=== PATIENT | male | born 1955 | race Caucasian/White ===

== ENCOUNTER 2016-10-15 07:26 | Day surgery (SDC) | payer OTHER ==
[2016-10-15] MEDS ORDERED: FENTANYL CITRATE 50 MCG/ML SOL ONE (07:51)
[2016-10-15] MEDS ORDERED: LIDOCAINE HCL 1% MPF SOL ONE (07:51)
[2016-10-15] MEDS ORDERED: PROPOFOL 10 MG/ML EMU IV ONE ×3 (07:51→12:14)
[2016-10-15] MEDS ORDERED: MIDAZOLAM 2 MG/2 ML SOL ONE (07:51)
[2016-10-15] MEDS ORDERED: CEFAZOLIN SODIUM 1 GM PDS ONE (12:00)
[2016-10-15] MEDS: LIDOCAINE HCL 1% MPF SOL ONE (12:02)
[2016-10-15] MEDS: BUPIVACAINE/EPI 0.5% 10 ML SOL INFIL ONE (12:02)
[2016-10-15] MEDS: HEPARIN SODIUM 100 U/ML SOL IV ONE (12:22)
[2016-10-15 12:56] VITALS: RESP 18
[2016-10-15 13:24] VITALS: BP 129/74; PULSE 79; TEMP 97.4; O2SAT 93
== END 2016-10-15 13:55 | disposition home or self-care (01) | DRG 842 ==
LOC: SURG 07:26
PROVIDERS: ATTEND Surgery
DX: C95.90 Leukemia, unspecified not having achieved remission (principal)
CPT/HCPCS: 71010; 76000; J0690; J1644; J2250; J3010

== ENCOUNTER 2017-06-28 15:08 | Emergency (ER) | payer OTHER ==
[2017-06-28 15:32] VITALS: BP 132/78; PULSE 68; RESP 20; TEMP 98.2; O2SAT 98
== END 2017-06-28 15:55 | disposition home or self-care (01) | DRG 151 ==
LOC: ED 15:08
DX: R04.0 Epistaxis (principal)
CPT/HCPCS: 30901; 99282

== ENCOUNTER 2017-06-28 16:22 | Emergency (ER) | payer OTHER ==
[2017-06-28 16:22] VITALS: O2SAT 98
[2017-06-28 16:42] VITALS: BP 151/75; PULSE 66; RESP 20; TEMP 96.5
== END 2017-06-28 17:15 | disposition home or self-care (01) | DRG 151 ==
LOC: ED 16:22
DX: R04.0 Epistaxis (principal)
CPT/HCPCS: 99282

== ENCOUNTER 2017-09-30 20:36 | Inpatient (IN) | payer OTHER ==
[2017-09-30] MEDS ORDERED: ALBUTEROL/IPRATROPIUM 1 VIAL SOL ONE ×3 (20:41→21:35)
[2017-09-30] MEDS ORDERED: SOLUMEDROL 125 MG/2 ML 125 MG/2 ML PDS ONE (20:41)
[2017-09-30] MEDS ORDERED: ALBUTEROL/IPRATROPIUM 1 VIAL SOL INH ONE ×3 (20:42→21:55)
[2017-09-30] MEDS ORDERED: SOLUMEDROL 125 MG/2 ML 125 MG/2 ML PDS IV ONE (20:43)
[2017-09-30 20:53] LABS: BASOPHILS % (AUTO) 1 % (0-3); EOSINOPHILS % (AUTO) 1 % (0-9); HEMATOCRIT 39 % (39-53); MEAN CORPUSCULAR HGB CONC 34.6 gm/dl (32.0-36.0); MEAN CORPUSCULAR VOLUME 93 fL (80-100); MONOCYTES % (AUTO) 15.4 % (0-12); NEUTROPHILS % (AUTO) 67.6 % (37-80)
[2017-09-30] MEDS ORDERED: HEPARIN 500 Unit PRE-FILL 100 U/ML SOL IV PRN (20:56)
[2017-09-30 21:06] LABS: ALBUMIN 3.9 gm/dl (3.4-5.0); CALCIUM 8.8 mg/dl (8.5-10.1); POTASSIUM 3.7 mMol/L (3.5-5.1)
[2017-09-30] MEDS: SODIUM CHLORIDE 0.9% FLUSH 10 ML SOL IV PRN ×2 (21:14→23:20)
[2017-09-30] MEDS: ALBUTEROL NEB SOL 2.5MG/3ML 1 VIAL SOL NEB SCH (23:16)
[2017-09-30] MEDS: SOLUMEDROL 125 MG/2 ML 125 MG/2 ML PDS IV SCH (23:16)
[2017-10-01] MEDS: ALBUTEROL NEB SOL 2.5MG/3ML 1 VIAL SOL NEB SCH ×2 (04:29→09:49)
[2017-10-01 04:33] VITALS: RESP 20
[2017-10-01] MEDS: SODIUM CHLORIDE 0.9% FLUSH 10 ML SOL IV PRN ×2 (06:48→13:00)
[2017-10-01] MEDS: SOLUMEDROL 125 MG/2 ML 125 MG/2 ML PDS IV SCH (06:48)
[2017-10-01 07:26] LABS: CALCIUM 8.5 mg/dl (8.5-10.1); POTASSIUM 3.7 mMol/L (3.5-5.1)
[2017-10-01 07:45] VITALS: BP 139/83; TEMP 98.4
[2017-10-01] MEDS ORDERED: AMLODIPINE 5 MG TAB PO SCH (09:00)
[2017-10-01] MEDS ORDERED: LOSARTAN POTASSIUM 50 MG TAB PO SCH (09:00)
[2017-10-01] MEDS ORDERED: ATORVASTATIN 10 MG TAB PO SCH (09:00)
[2017-10-01] MEDS ORDERED: PANTOPRAZOLE SODIUM 40 MG ECT PO SCH (09:00)
[2017-10-01] MEDS ORDERED: FOLIC ACID 1 MG TAB PO SCH ×2 (09:00→09:45)
[2017-10-01] MEDS ORDERED: RIVAROXABAN 20 MG TAB PO SCH (09:00)
[2017-10-01] MEDS ORDERED: ATENOLOL 25 MG TAB PO SCH (09:00)
[2017-10-01] MEDS ORDERED: HYDROCHLOROTHIAZIDE/TRIAMTER 25/37.5 CAPSULE PO SCH (09:00)
[2017-10-01] MEDS ORDERED: ALLOPURINOL 100 MG TAB PO SCH (09:00)
[2017-10-01] MEDS ORDERED: OMEPRAZOLE 20 MG CAPSULE PO SCH (09:00)
[2017-10-01] MEDS ORDERED: RIVAROXABAN 10 MG TAB PO SCH ×2 (09:00→09:45)
[2017-10-01] MEDS ORDERED: SERTRALINE HYDROCHLORIDE 50 MG TAB PO SCH (09:00)
[2017-10-01] MEDS ORDERED: POTASSIUM CHLORIDE 10 MEQ TER PO SCH (09:00)
[2017-10-01] MEDS ORDERED: CETIRIZINE HYDROCHLORIDE 10 MG TAB PO SCH (09:00)
[2017-10-01] MEDS ORDERED: AUGMENTIN(FRIDGE) 400 MG/5 ML PO SCH (09:15)
[2017-10-01] MEDS: HUMALOG PEN 100 U/ML SC SCH ×2 (09:42→11:34)
[2017-10-01 10:13] VITALS: PULSE 101; O2SAT 99
[2017-10-01] MEDS ORDERED: PREDNISONE 20 MG TAB PO SCH (12:00)
[2017-10-01] MEDS ORDERED: AMOXIL/CLAVULANATE 400/5 ML PDR ONE (12:25)
[2017-10-01] MEDS ORDERED: FLUTICASONE/SALMETEROL 250/50 1 PUFF DSK INH SCH (21:00)
[2017-10-01] MEDS ORDERED: FAMOTIDINE 20 MG TAB PO SCH (21:00)
[2017-10-01] MEDS ORDERED: RANITIDINE HCL 150 MG TAB PO SCH (21:00)
[2017-10-02] MEDS ORDERED: TIOTROPIUM BROMIDE 18 MCG CAP INH PRN (09:00)
== END 2017-10-01 13:15 | disposition home or self-care (01) | DRG 190 ==
LOC: ED 20:36 → ACUTE CARE 21:52 → OBSVTOIN 21:52
PROVIDERS: ADMIT Family Medicine; ATTEND Family Medicine
DX: J44.1 Chronic obstructive pulmonary disease with (acute) exacerbation (principal); J96.01 Acute respiratory failure with hypoxia; C91.10 Chronic lymphocytic leukemia of B-cell type not having achieved remission; E87.1 Hypo-osmolality and hyponatremia; E11.9 Type 2 diabetes mellitus without complications; Z79.84 Long term (current) use of oral hypoglycemic drugs
CPT/HCPCS: 36591; 70486; 71010; 71260; 74177; 80048; 80053; 82962; 85025; 87804; 94150; 94640; 94664; 99285; J1644; J2930; J7603; J7620; Q9967

== ENCOUNTER 2017-12-18 07:43 | Emergency (ER) | payer OTHER ==
[2017-12-18 07:50] VITALS: RESP 18; TEMP 97.3
[2017-12-18 08:24] LABS: BASOPHILS % (AUTO) 2 % (0-3); EOSINOPHILS % (AUTO) 1 % (0-9); HEMATOCRIT 39 % (39-53); MEAN CORPUSCULAR HGB CONC 33.7 gm/dl (32.0-36.0); MEAN CORPUSCULAR VOLUME 94 fL (80-100); MONOCYTES % (AUTO) 7.8 % (0-12); NEUTROPHILS % (AUTO) 75.8 % (37-80)
[2017-12-18] MEDS ORDERED: PHENYLEPHRINE HCL 0.5% SPR NAS ONE ×2 (08:44)
[2017-12-18 09:13] VITALS: BP 164/89; PULSE 56; O2SAT 94
== END 2017-12-18 09:03 | disposition home or self-care (01) | DRG 151 ==
LOC: ED 07:43
DX: R04.0 Epistaxis (principal)
CPT/HCPCS: 36415; 85025; 99282; 99283; A9270-GY

== ENCOUNTER 2017-12-18 10:04 | Emergency (ER) | payer OTHER ==
[2017-12-18 10:16] VITALS: BP 138/84; PULSE 85; RESP 18; TEMP 98.7; O2SAT 97
== END 2017-12-18 10:36 | disposition home or self-care (01) | DRG 151 ==
LOC: ED 10:04
DX: R04.0 Epistaxis (principal); Z79.01 Long term (current) use of anticoagulants
CPT/HCPCS: 99282

== ENCOUNTER 2017-12-31 13:06 | Emergency (ER) | payer OTHER ==
[2017-12-31] MEDS ORDERED: ALBUTEROL/IPRATROPIUM 1 VIAL SOL ONE (13:08)
[2017-12-31] MEDS ORDERED: ALBUTEROL/IPRATROPIUM 1 VIAL SOL INH ONE (13:16)
[2017-12-31] MEDS ORDERED: SODIUM CHLORIDE 0.9% FLUSH 10 ML SOL IV PRN (13:16)
[2017-12-31] MEDS ORDERED: SOLUMEDROL 125 MG/2 ML 125 MG/2 ML PDS IV ONE (13:18)
[2017-12-31 13:24] VITALS: TEMP 96.9
[2017-12-31] MEDS ORDERED: HEPARIN 500 Unit PRE-FILL 100 U/ML SOL IV PRN (13:24)
[2017-12-31 13:32] LABS: BASOPHILS % (AUTO) 1 % (0-3); EOSINOPHILS % (AUTO) 1 % (0-9); HEMATOCRIT 42 % (39-53); MEAN CORPUSCULAR HGB CONC 33.7 gm/dl (32.0-36.0); MEAN CORPUSCULAR VOLUME 93 fL (80-100); MONOCYTES % (AUTO) 10.8 % (0-12)
[2017-12-31 13:34] LABS: ALBUMIN 3.6 gm/dl (3.4-5.0); CALCIUM 8.8 mg/dl (8.5-10.1)
[2017-12-31 13:44] VITALS: O2SAT 96
[2017-12-31 14:03] VITALS: BP 144/107; PULSE 75; RESP 20
[2017-12-31] MEDS ORDERED: HEPARIN 500 Unit PRE-FILL 100 U/ML SOL IV ONE (14:31)
== END 2017-12-31 14:41 | disposition home or self-care (01) | DRG 190 ==
LOC: ED 13:06
DX: J44.1 Chronic obstructive pulmonary disease with (acute) exacerbation (principal); J96.01 Acute respiratory failure with hypoxia
CPT/HCPCS: 71045; 80053; 83880; 85025; 87804; 93005; 94150; 99284; 99291; J1644

== ENCOUNTER 2018-01-03 12:29 | Emergency (ER) | payer OTHER ==
[2018-01-03 12:52] VITALS: BP 125/69; PULSE 74; RESP 18; TEMP 96.6; O2SAT 98
== END 2018-01-03 13:04 | disposition home or self-care (01) | DRG 151 ==
LOC: ED 12:29
DX: R04.0 Epistaxis (principal)
CPT/HCPCS: 99283

== ENCOUNTER 2019-01-04 15:53 | Emergency (ER) | payer OTHER ==
[2019-01-04] MEDS: ALBUTEROL/IPRATROPIUM 1 VIAL SOL INH ONE (16:17)
[2019-01-04] MEDS ORDERED: ALBUTEROL/IPRATROPIUM 1 VIAL SOL ONE (16:22)
[2019-01-04 18:40] VITALS: TEMP 98.1
[2019-01-04 19:41] VITALS: BP 161/110; PULSE 87; RESP 18; O2SAT 92
== END 2019-01-04 17:27 | disposition home or self-care (01) | DRG 153 ==
LOC: ED 15:53
DX: J06.9 Acute upper respiratory infection, unspecified (principal); R06.02 Shortness of breath
CPT/HCPCS: 71045; 99283

== ENCOUNTER 2019-01-08 15:01 | Inpatient (IN) | payer OTHER ==
[2019-01-08] MEDS ORDERED: ALBUTEROL/IPRATROPIUM 1 VIAL SOL ONE ×2 (15:05→15:29)
[2019-01-08] MEDS ORDERED: ALBUTEROL/IPRATROPIUM 1 VIAL SOL INH ONE ×2 (15:07→15:29)
[2019-01-08] MEDS ORDERED: SOLUMEDROL 125 MG/2 ML 125 MG/2 ML PDS ONE (15:12)
[2019-01-08] MEDS ORDERED: METOPROLOL TARTRATE 5 MG/5 ML SOL IV ONE ×4 (15:15→15:31)
[2019-01-08] MEDS ORDERED: SOLUMEDROL 125 MG/2 ML 125 MG/2 ML PDS IV ONE (15:25)
[2019-01-08 15:45] LABS: BASOPHILS % (AUTO) 1 % (0-3); EOSINOPHILS % (AUTO) 0 % (0-9); HEMATOCRIT 42 % (39-53); HEMOGLOBIN 14.1 gm/dl (13.5-17.7); LYMPHOCYTES % (AUTO) 21.9 % (10-50); MEAN CORPUSCULAR HEMOGLOBIN 30.2 pg (27.0-32.0); MEAN CORPUSCULAR HGB CONC 33.6 gm/dl (32.0-36.0); MEAN CORPUSCULAR VOLUME 90 fL (80-100); NEUTROPHILS % (AUTO) 74.3 % (37-80)
[2019-01-08 15:50] LABS: INR 1.12 (0.86-1.12)
[2019-01-08 15:59] LABS: CALCIUM 8.8 mg/dl (8.5-10.1); CARBON DIOXIDE 30.5 mEq/L (21-32); CREATININE 1.1 mg/dl (0.80-1.30); POTASSIUM 4.4 mMol/L (3.5-5.1)
[2019-01-08 16:01] LABS: TROP I 0.026 ng/ml (0.000-0.056)
[2019-01-08 16:04] LABS: ABG PH 7.36 (7.35-7.45)
[2019-01-08] MEDS ORDERED: NAPROXEN 500 MG TAB PO PRN (17:17)
[2019-01-08] MEDS ORDERED: ALBUTEROL/IPRATROPIUM 1 VIAL SOL INH PRN (17:18)
[2019-01-08] MEDS: ALBUTEROL/IPRATROPIUM 1 VIAL SOL INH SCH ×2 (18:05→21:04)
[2019-01-08] MEDS ORDERED: LEVOFLOXACIN 500 MG TAB ONE (18:21)
[2019-01-08] MEDS: FUROSEMIDE 20 MG TAB PO SCH (18:25)
[2019-01-08] MEDS: ALLOPURINOL 100 MG TAB PO SCH (18:25)
[2019-01-08] MEDS: AMLODIPINE 5 MG TAB PO SCH (18:25)
[2019-01-08] MEDS: LOSARTAN POTASSIUM 50 MG TAB PO SCH (18:26)
[2019-01-08] MEDS: ASPIRIN 325 MG TAB PO SCH (18:26)
[2019-01-08] MEDS: LEVOFLOXACIN 500 MG TAB PO SCH (18:27)
[2019-01-08] MEDS: METFORMIN HYDROCHLORIDE 500 MG TAB PO SCH (21:00)
[2019-01-08] MEDS ORDERED: RANITIDINE HCL 150 MG TAB PO SCH (21:00)
[2019-01-08] MEDS: FAMOTIDINE 20 MG TAB PO SCH (21:03)
[2019-01-08] MEDS: SERTRALINE HYDROCHLORIDE 50 MG TAB PO SCH (21:04)
[2019-01-08] MEDS: TAMSULOSIN HYDROCHLORIDE 0.4 MG CAP PO SCH (21:04)
[2019-01-08] MEDS: SODIUM CHLORIDE 0.9% FLUSH 10 ML SOL IV PRN (21:16)
[2019-01-09] MEDS: ALBUTEROL/IPRATROPIUM 1 VIAL SOL INH SCH ×6 (01:35→22:44)
[2019-01-09] MEDS: FLUTICASONE PO SCH ×2 (07:27→08:20)
[2019-01-09] MEDS: SALMETEROL PO SCH ×2 (07:27→08:20)
[2019-01-09] MEDS: PRIMIDONE 50 MG PO SCH ×5 (07:27→22:31)
[2019-01-09 07:39] LABS: BASOPHILS % (AUTO) 1 % (0-3); EOSINOPHILS % (AUTO) 0 % (0-9); HEMATOCRIT 40 % (39-53); HEMOGLOBIN 13.4 gm/dl (13.5-17.7); LYMPHOCYTES % (AUTO) 26.5 % (10-50); MEAN CORPUSCULAR HEMOGLOBIN 29.6 pg (27.0-32.0); MEAN CORPUSCULAR HGB CONC 33.1 gm/dl (32.0-36.0); MEAN CORPUSCULAR VOLUME 89 fL (80-100); MONOCYTES % (AUTO) 8.9 % (0-12)
[2019-01-09 07:53] LABS: CALCIUM 9.1 mg/dl (8.5-10.1); CARBON DIOXIDE 31.2 mEq/L (21-32); CREATININE 1.17 mg/dl (0.80-1.30); POTASSIUM 3.4 mMol/L (3.5-5.1)
[2019-01-09] MEDS: FUROSEMIDE 40 MG TAB PO SCH (08:17)
[2019-01-09] MEDS: METFORMIN HYDROCHLORIDE 500 MG TAB PO SCH ×3 (08:17→22:30)
[2019-01-09] MEDS: POTASSIUM CHLORIDE 10 MEQ TER PO SCH (08:17)
[2019-01-09] MEDS: ATENOLOL 25 MG TAB PO SCH (08:17)
[2019-01-09] MEDS: PREDNISONE 20 MG TAB PO SCH (08:18)
[2019-01-09] MEDS: CETIRIZINE HYDROCHLORIDE 10 MG TAB PO SCH (08:19)
[2019-01-09] MEDS: LEVOFLOXACIN 500 MG TAB PO SCH (08:19)
[2019-01-09] MEDS: PANTOPRAZOLE SODIUM 40 MG ECT PO SCH (08:19)
[2019-01-09] MEDS: ENOXAPARIN 40 MG SOL SC SCH ×2 (08:22→08:25)
[2019-01-09] MEDS ORDERED: FOLIC ACID 1 MG TAB PO SCH (09:00)
[2019-01-09] MEDS ORDERED: OMEPRAZOLE 20 MG CAPSULE PO SCH (09:00)
[2019-01-09] MEDS ORDERED: POTASSIUM CHLORIDE 10 MEQ CAPSULE PO ONE (10:36)
[2019-01-09] MEDS: ALBUTEROL NEB SOL 2.5MG/3ML 1 VIAL SOL NEB PRN (12:47)
[2019-01-09] MEDS: AMLODIPINE 5 MG TAB PO SCH (18:04)
[2019-01-09] MEDS: ASPIRIN 325 MG TAB PO SCH (18:04)
[2019-01-09] MEDS: LOSARTAN POTASSIUM 50 MG TAB PO SCH (18:04)
[2019-01-09] MEDS: FUROSEMIDE 20 MG TAB PO SCH (18:05)
[2019-01-09] MEDS: ALLOPURINOL 100 MG TAB PO SCH (18:05)
[2019-01-09] MEDS ORDERED: ALBUTEROL/IPRATROPIUM 1 VIAL SOL ONE (18:22)
[2019-01-09] MEDS: TAMSULOSIN HYDROCHLORIDE 0.4 MG CAP PO SCH ×2 (19:52→22:28)
[2019-01-09] MEDS: FAMOTIDINE 20 MG TAB PO SCH ×2 (19:53→22:30)
[2019-01-09] MEDS: SERTRALINE HYDROCHLORIDE 50 MG TAB PO SCH ×2 (19:55→22:31)
[2019-01-09] MEDS: FLUTICASONE/SALMETEROL 250/50 1 PUFF DSK INH SCH (22:27)
[2019-01-10] MEDS: ALBUTEROL/IPRATROPIUM 1 VIAL SOL INH SCH ×6 (01:59→22:20)
[2019-01-10] MEDS ORDERED: ACETAMINOPHEN 500 MG 500 MG TAB PO PRN (08:08)
[2019-01-10] MEDS: FOLIC ACID 1 MG TAB PO SCH (08:26)
[2019-01-10] MEDS: FUROSEMIDE 40 MG TAB PO SCH (08:26)
[2019-01-10] MEDS: LEVOFLOXACIN 500 MG TAB PO SCH (08:27)
[2019-01-10] MEDS: POTASSIUM CHLORIDE 10 MEQ TER PO SCH (08:27)
[2019-01-10] MEDS: PREDNISONE 20 MG TAB PO SCH (08:28)
[2019-01-10] MEDS: METFORMIN HYDROCHLORIDE 500 MG TAB PO SCH ×2 (08:28→20:35)
[2019-01-10] MEDS: ENOXAPARIN 40 MG SOL SC SCH (08:31)
[2019-01-10] MEDS: PRIMIDONE 50 MG PO SCH ×2 (08:32→20:35)
[2019-01-10] MEDS: PANTOPRAZOLE SODIUM 40 MG ECT PO SCH (08:33)
[2019-01-10] MEDS: CETIRIZINE HYDROCHLORIDE 10 MG TAB PO SCH (08:34)
[2019-01-10] MEDS: ATENOLOL 25 MG TAB PO SCH (08:42)
[2019-01-10 08:57] LABS: CARBON DIOXIDE 32.4 mEq/L (21-32); CREATININE 1.39 mg/dl (0.80-1.30); POTASSIUM 3.5 mMol/L (3.5-5.1)
[2019-01-10] MEDS: SALMETEROL INH SCH ×2 (09:29→20:36)
[2019-01-10] MEDS: FLUTICASONE INH SCH ×2 (09:29→20:36)
[2019-01-10] MEDS: SODIUM CHLORIDE 0.9% 1000ML 1,000 ML IV SCH (10:34)
[2019-01-10] MEDS: FLUTICASONE/SALMETEROL 250/50 1 PUFF DSK INH SCH (12:47)
[2019-01-10] MEDS: ASPIRIN 325 MG TAB PO SCH (17:56)
[2019-01-10] MEDS: LOSARTAN POTASSIUM 50 MG TAB PO SCH (17:56)
[2019-01-10] MEDS: FUROSEMIDE 20 MG TAB PO SCH (17:57)
[2019-01-10] MEDS: AMLODIPINE 5 MG TAB PO SCH (17:57)
[2019-01-10] MEDS: ALLOPURINOL 100 MG TAB PO SCH (17:58)
[2019-01-10] MEDS: TAMSULOSIN HYDROCHLORIDE 0.4 MG CAP PO SCH (20:34)
[2019-01-10] MEDS: SERTRALINE HYDROCHLORIDE 50 MG TAB PO SCH (20:34)
[2019-01-10] MEDS: FAMOTIDINE 20 MG TAB PO SCH (20:35)
[2019-01-10] MEDS: ALBUTEROL NEB SOL 2.5MG/3ML 1 VIAL SOL NEB PRN (22:44)
[2019-01-11] MEDS ORDERED: HEPARIN 500 Unit PRE-FILL 100 U/ML SOL IV PRN (00:07)
[2019-01-11] MEDS: SODIUM CHLORIDE 0.9% 1000ML 1,000 ML IV SCH (01:02)
[2019-01-11] MEDS: ALBUTEROL/IPRATROPIUM 1 VIAL SOL INH SCH ×6 (02:03→21:44)
[2019-01-11 07:27] LABS: CALCIUM 8.9 mg/dl (8.5-10.1); CARBON DIOXIDE 30.3 mEq/L (21-32); CREATININE 1.4 mg/dl (0.80-1.30); POTASSIUM 3.8 mMol/L (3.5-5.1)
[2019-01-11] MEDS: ENOXAPARIN 40 MG SOL SC SCH (09:23)
[2019-01-11] MEDS: LEVOFLOXACIN 500 MG TAB PO SCH (09:24)
[2019-01-11] MEDS: METFORMIN HYDROCHLORIDE 500 MG TAB PO SCH ×2 (09:25→20:56)
[2019-01-11] MEDS: FUROSEMIDE 40 MG TAB PO SCH (09:29)
[2019-01-11] MEDS: PRIMIDONE 50 MG PO SCH ×2 (09:29→20:57)
[2019-01-11] MEDS: POTASSIUM CHLORIDE 10 MEQ TER PO SCH (09:33)
[2019-01-11] MEDS: PREDNISONE 20 MG TAB PO SCH (09:33)
[2019-01-11] MEDS: CETIRIZINE HYDROCHLORIDE 10 MG TAB PO SCH (09:35)
[2019-01-11] MEDS: PANTOPRAZOLE SODIUM 40 MG ECT PO SCH (09:35)
[2019-01-11] MEDS: ATENOLOL 25 MG TAB PO SCH (09:35)
[2019-01-11] MEDS: SALMETEROL INH SCH ×2 (09:36→20:57)
[2019-01-11] MEDS: FOLIC ACID 1 MG TAB PO SCH (09:36)
[2019-01-11] MEDS: FLUTICASONE INH SCH ×2 (09:36→20:57)
[2019-01-11] MEDS: LOSARTAN POTASSIUM 50 MG TAB PO SCH (17:24)
[2019-01-11] MEDS: ASPIRIN 325 MG TAB PO SCH (17:24)
[2019-01-11] MEDS: AMLODIPINE 5 MG TAB PO SCH (17:25)
[2019-01-11] MEDS: FUROSEMIDE 20 MG TAB PO SCH (17:25)
[2019-01-11] MEDS: ALLOPURINOL 100 MG TAB PO SCH (17:28)
[2019-01-11] MEDS: SERTRALINE HYDROCHLORIDE 50 MG TAB PO SCH (20:56)
[2019-01-11] MEDS: TAMSULOSIN HYDROCHLORIDE 0.4 MG CAP PO SCH (20:56)
[2019-01-11] MEDS: FAMOTIDINE 20 MG TAB PO SCH (20:56)
[2019-01-12] MEDS: ALBUTEROL/IPRATROPIUM 1 VIAL SOL INH SCH ×3 (01:31→09:59)
[2019-01-12 07:35] LABS: CALCIUM 8.6 mg/dl (8.5-10.1); CARBON DIOXIDE 30.7 mEq/L (21-32); CREATININE 1.24 mg/dl (0.80-1.30); POTASSIUM 3.4 mMol/L (3.5-5.1)
[2019-01-12] MEDS ORDERED: POTASSIUM CHLORIDE 10 MEQ TER PO SCH (08:03)
[2019-01-12] MEDS: FLUTICASONE INH SCH (08:33)
[2019-01-12] MEDS: SALMETEROL INH SCH (08:33)
[2019-01-12] MEDS: FUROSEMIDE 40 MG TAB PO SCH (08:33)
[2019-01-12] MEDS: LEVOFLOXACIN 500 MG TAB PO SCH (08:34)
[2019-01-12] MEDS: METFORMIN HYDROCHLORIDE 500 MG TAB PO SCH (08:35)
[2019-01-12] MEDS: PRIMIDONE 50 MG PO SCH (08:36)
[2019-01-12] MEDS: PREDNISONE 20 MG TAB PO SCH (08:36)
[2019-01-12] MEDS: PANTOPRAZOLE SODIUM 40 MG ECT PO SCH (08:36)
[2019-01-12] MEDS: CETIRIZINE HYDROCHLORIDE 10 MG TAB PO SCH (08:37)
[2019-01-12] MEDS: ATENOLOL 25 MG TAB PO SCH (08:37)
[2019-01-12] MEDS: FOLIC ACID 1 MG TAB PO SCH (08:39)
[2019-01-12] MEDS: ENOXAPARIN 40 MG SOL SC SCH (08:39)
[2019-01-12 10:04] VITALS: BP 115/78; PULSE 97; RESP 16; TEMP 97.8; O2SAT 93
[2019-01-12] MEDS: SODIUM CHLORIDE 0.9% FLUSH 10 ML SOL IV PRN (10:30)
== END 2019-01-12 12:30 | disposition home or self-care (01) | DRG 191 ==
LOC: ED 15:01 → UNDOADMIN 16:29 → ACUTE CARE 16:29
PROVIDERS: ADMIT Family Medicine; ATTEND Family Medicine
DX: J44.1 Chronic obstructive pulmonary disease with (acute) exacerbation (principal); E87.1 Hypo-osmolality and hyponatremia; R06.02 Shortness of breath; R73.03 Prediabetes
CPT/HCPCS: 36415; 36591; 36600; 71045; 80048; 82803; 83880; 84484; 85025; 85610; 93005; 93012; 94150; 94660; 94762; 99285; J1644; J1650; J2930; J7613; A9270; A9270-GY; J3490